=== PATIENT | female | born 1975 | race Hispanic/Latino ===

== ENCOUNTER 2022-02-27 16:16 | Emergency (ER) | payer SELFPAY | END 2022-02-27 18:58 | disposition home or self-care (01) | LOC: ERS 16:16 | DX: N64.59 Other signs and symptoms in breast (principal); G40.909 Epilepsy, unspecified, not intractable, without status epilepticus | CPT/HCPCS: 99282 ==

== ENCOUNTER 2022-04-26 15:03 | Emergency (ER) | payer MEDICAID, SELFPAY | END 2022-04-26 16:23 | disposition home or self-care (01) | LOC: ERS 15:03 | DX: J06.9 Acute upper respiratory infection, unspecified (principal); Z20.822 Contact with and (suspected) exposure to COVID-19 | CPT/HCPCS: 99283; U0003; U0005 ==

== ENCOUNTER 2022-05-08 04:56 | Emergency (ER) | payer SELFPAY ==
[2022-05-08 06:20] LABS: #Eosinphils 0.4 thou/uL (0.0-0.7); #Lymphocytes 3.2 thou/uL (1.20-3.40); #Monocytes 0.6 thou/uL (0.11-0.59); #Neutrophils 3.6 thou/uL (1.40-6.50); %Basophils 0.5 % (0.0-1.0); %Eosinophils 5.4 % (0.0-10.0); %Lymphocytes 41.2 % (21.0-51.0); %Neutrophils 45.9 % (42.0-75.0); Hemoglobin 13.3 g/dL (12.0-16.0); Mean Corpuscular Hemoglobin 33.2 pg (27.0-31.0); Mean Corpuscular Volume 97.5 fL (78.0-98.0); Mean Platelet Volume 6.4 fL (7.4-10.4); Platelet Count 290 thou/uL (130-400); RBC Distribution Width 11.1 % (11.5-14.5); Red Blood Cell (RBC) Count 4.01 mill/uL (4.20-5.40); White Blood Cell (WBC) Count 7.9 thou/uL (4.8-10.8)
[2022-05-08 06:40] LABS: Bilirubin Negative (Negative); Blood, Urine Negative (Negative); Clarity Clear (Clear); Glucose, Urine (Dipstick) Normal (Negative); Ketone, Urine Negative (Negative); Leukocyte Negative Leu/uL (Negative); Nitrite Negative (Negative); Protein, Urine (Dipstick) Negative (Neg-Trace); Specific Gravity, Urine 1.019 (1.002-1.036); Urobilinogen Normal mg/dL (Less than 2); pH, Urine 5.5 (5.0-9.0)
[2022-05-08 06:42] LABS: ALT (SGPT) 13 U/L (8-55); AST (SGOT) 13 U/L (5-34); Alkaline Phosphatase 103 U/L (40-110); Anion Gap 14 mmol/L (10-20); BUN (Urea Nitrogen) 11 mg/dL (7.0-18.7); Bilirubin, Total 0.3 mg/dL (0.2-1.2); Calc. Creatinine Clearance 0 mL/min (70-130); Calcium 8.5 mg/dL (7.8-10.44); Carbon Dioxide 21 mmol/L (22-29); Chloride 107 mmol/L (98-107); Estimated GFR 110; Globulin 3.3 g/dL (2.4-3.5); Glucose 98 mg/dL (70-105); Protein, Total 7.3 g/dL (6.0-8.3); Sodium 138 mmol/L (136-145)
[2022-05-08 06:43] LABS: Pregnancy Test - Urine (BHCG) Negative (Negative); Pregu Control Background? CLEAR/WHITE (CLR/WHITE); Pregu Control Bar Appear? YES (CONTROL BAR); Specific Gravity 1.013 (1.002-1.036)
[2022-05-08] MEDS ORDERED: Morphine 4 MG/ML VIAL ONE (06:47)
[2022-05-08] MEDS ORDERED: Famotidine/PF 20 mg/2ml Vial ONE (06:47)
[2022-05-08] MEDS ORDERED: Ondansetron PF 4 MG/2 ML Vial ONE (06:47)
[2022-05-08] MEDS ORDERED: Iopamidol-370 76% 500 ML 1 ML ONE (13:29)
== END 2022-05-08 08:08 | disposition home or self-care (01) ==
LOC: ERS 04:56
DX: R10.13 Epigastric pain (principal)
CPT/HCPCS: 36415; 74177; 80053; 81003; 81025; 83690; 84484; 85025; 93005; 96374; 96375; J2270; J2405; Q9967; S0028

== ENCOUNTER 2022-07-25 12:58 | Outpatient (CLI) | payer MEDICAID | END 2022-07-25 12:59 | disposition home or self-care (01) | LOC: BICMAMMO 12:58 | PROVIDERS: ATTEND Family Medicine | DX: Z12.31 Encounter for screening mammogram for malignant neoplasm of breast (principal) | CPT/HCPCS: 77067 ==

== ENCOUNTER 2022-09-12 13:59 | Emergency (ER) | payer MEDICAID, SELFPAY ==
[2022-09-12] MEDS ORDERED: Boostrix 0.5 ML (Tdap) VIAL (>/=7 yrs of age) ONE (14:51)
[2022-09-12] MEDS ORDERED: Lidocaine 1% PF 5 ML VIAL ONE (14:51)
[2022-09-12] MEDS ORDERED: Bacitracin 1 PK ONE (15:38)
== END 2022-09-12 15:41 | disposition home or self-care (01) ==
LOC: ERS 13:59
DX: S61.211A Laceration without foreign body of left index finger without damage to nail, initial encounter (principal); Z23 Encounter for immunization; W27.2XXA Contact with scissors, initial encounter
CPT/HCPCS: 12002; 90471; 90715

== ENCOUNTER 2023-01-18 01:50 | Emergency (ER) | payer MEDICAID ==
[2023-01-18] MEDS ORDERED: diphenhydrAMINE 50 MG/ML VIAL ONE (02:02)
[2023-01-18] MEDS ORDERED: Famotidine/PF 20 mg/2ml Vial ONE (02:02)
[2023-01-18] MEDS ORDERED: methylPREDNISolone Sod Succ/PF 125 MG/2 ML VIAL ONE (02:02)
== END 2023-01-18 02:45 | disposition home or self-care (01) ==
LOC: ERS 01:50
DX: L50.0 Allergic urticaria (principal)
CPT/HCPCS: 96374; 96375; J1200; J2930; S0028

== ENCOUNTER 2023-05-15 12:05 | Emergency (ER) | payer OTHER ==
[2023-05-15] MEDS ORDERED: Boostrix 0.5 ML (Tdap) VIAL (>/=7 yrs of age) ONE (14:03)
== END 2023-05-15 14:24 | disposition home or self-care (01) ==
LOC: ERS 12:05
DX: S91.102A Unspecified open wound of left great toe without damage to nail, initial encounter (principal); E78.00 Pure hypercholesterolemia, unspecified; Z79.899 Other long term (current) drug therapy; W25.XXXA Contact with sharp glass, initial encounter
CPT/HCPCS: 90471; 90715

== ENCOUNTER 2023-08-02 14:36 | Outpatient (CLI) | payer OTHER | END 2023-08-02 14:37 | disposition home or self-care (01) | LOC: BICMAMMO 14:36 | PROVIDERS: ATTEND Family Medicine | DX: Z12.31 Encounter for screening mammogram for malignant neoplasm of breast (principal) | CPT/HCPCS: 77067 ==

== ENCOUNTER 2023-08-15 11:41 | Emergency (ER) | payer OTHER | END 2023-08-15 12:50 | disposition home or self-care (01) | LOC: ERS 11:41 | DX: H00.013 Hordeolum externum right eye, unspecified eyelid (principal); E78.00 Pure hypercholesterolemia, unspecified | CPT/HCPCS: 99283 ==

== ENCOUNTER 2023-08-17 13:33 | Emergency (ER) | payer OTHER ==
[2023-08-17 15:02] LABS: #Eosinphils 0.2 thou/uL (0.0-0.7); #Monocytes 0.5 thou/uL (0.11-0.59); #Neutrophils 2.8 thou/uL (1.40-6.50); %Basophils 0.3 % (0.0-1.0); %Eosinophils 2.4 % (0.0-10.0); %Lymphocytes 45.6 % (21.0-51.0); %Monocytes 7.3 % (0.0-10.0); %Neutrophils 44.2 % (42.0-75.0); Hematocrit 40.8 % (36.0-47.0); Hemoglobin 14.2 g/dL (12.0-16.0); Mean Corpuscular HGB CONC 34.8 g/dL (32.0-36.0); Mean Corpuscular Hemoglobin 32.1 pg (27.0-31.0); Mean Corpuscular Volume 92.3 fl (78.0-98.0); Mean Platelet Volume 8.9 fL (7.4-10.4); Platelet Count 268 10x3/uL (130-400); RBC Distribution Width 11.9 % (11.5-14.5); Red Blood Cell (RBC) Count 4.42 mill/uL (4.20-5.40); White Blood Cell (WBC) Count 6.3 10x3/uL (4.8-10.8)
[2023-08-17 15:24] LABS: ALT (SGPT) 13 U/L (8-55); AST (SGOT) 16 U/L (5-34); Albumin 4.9 g/dL (3.5-5.0); Alkaline Phosphatase 125 U/L (40-110); Anion Gap 13 mmol/L (10-20); BUN (Urea Nitrogen) 12 mg/dL (7.0-18.7); Bilirubin, Total Less than 0.2 mg/dL (0.2-1.2); Calc. Creatinine Clearance 0 mL/min (70-130); Calcium 9.9 mg/dL (7.8-10.44); Carbamazepine-Tegretol 8.5 ug/mL (4.0-12.0); Carbon Dioxide 26 mmol/L (22-29); Chloride 103 mmol/L (98-107); Estimated GFR 110; Globulin 3.2 g/dL (2.4-3.5); Glucose 80 mg/dL (70-105); Potassium 4.3 mmol/L (3.5-5.1); Protein, Total 8.1 g/dL (6.0-8.3); Sodium 138 mmol/L (136-145)
[2023-08-17] MEDS ORDERED: levETIRAcetam 500 MG/5 ML VIAL ONE (16:00)
[2023-08-17 17:00] LABS: Bacteria/HPF 3+ HPF (None Seen); Bilirubin Negative (Negative); Blood, Urine Negative (Negative); CAUTI Indications for Culture Alt mental st,lethar; Clarity Clear (Clear); Glucose, Urine (Dipstick) Normal (Negative); Ketone, Urine Negative (Negative); Leukocyte Negative Leu/uL (Negative); Nitrite Negative (Negative); Protein, Urine (Dipstick) Negative (Neg-Trace); RBC/HPF 0-3 HPF (0-3); Specific Gravity, Urine 1.011 (1.002-1.036); Squamous Epithelial 0-3 HPF (0-3); Urobilinogen Normal mg/dL (Less than 2); WBC/HPF 0-3 HPF (0-3); pH, Urine 5.5 (5.0-9.0)
[2023-08-17 17:04] LABS: Urine Culture Reflex No No
== END 2023-08-17 17:27 | disposition home or self-care (01) ==
LOC: ERS 13:33
DX: R56.9 Unspecified convulsions (principal); E78.00 Pure hypercholesterolemia, unspecified
CPT/HCPCS: 80053; 80156; 81001; 84146; 85025; 93005; 94760; 96365; J1953

== ENCOUNTER 2023-08-30 10:16 | Emergency (ER) | payer OTHER ==
[2023-08-30] MEDS ORDERED: levETIRAcetam 500 MG/5 ML VIAL ONE (11:28)
== END 2023-08-30 13:35 | disposition home or self-care (01) ==
LOC: ERS 10:16
DX: G40.909 Epilepsy, unspecified, not intractable, without status epilepticus (principal)
CPT/HCPCS: 70450; 96374; J1953

== ENCOUNTER 2023-09-25 19:16 | Emergency (ER) | payer OTHER ==
[2023-09-25 20:22] LABS: #Eosinphils 0.3 thou/uL (0.0-0.7); #Monocytes 0.5 thou/uL (0.11-0.59); #Neutrophils 3.8 thou/uL (1.40-6.50); %Basophils 0.1 % (0.0-1.0); %Eosinophils 3.8 % (0.0-10.0); %Lymphocytes 32.7 % (21.0-51.0); %Monocytes 7.2 % (0.0-10.0); %Neutrophils 55.9 % (42.0-75.0); Hematocrit 37.8 % (36.0-47.0); Mean Corpuscular HGB CONC 34.4 g/dL (32.0-36.0); Mean Corpuscular Hemoglobin 32.6 pg (27.0-31.0); Mean Corpuscular Volume 94.7 fl (78.0-98.0); Mean Platelet Volume 8.6 fL (7.4-10.4); Platelet Count 276 10x3/uL (130-400); RBC Distribution Width 11.8 % (11.5-14.5); Red Blood Cell (RBC) Count 3.99 mill/uL (4.20-5.40); White Blood Cell (WBC) Count 6.8 10x3/uL (4.8-10.8)
[2023-09-25 20:34] LABS: BHCG - Serum Negative (NEGATIVE); Pregs Control Background? CLEAR/WHITE (CLR/WHITE); Pregs Control Bar Appear? YES (CONTROL BAR)
[2023-09-25 20:51] LABS: Troponin I Less than 0.010 ng/mL (< 0.028)
[2023-09-25 20:55] LABS: ALT (SGPT) 10 U/L (8-55); AST (SGOT) 14 U/L (5-34); Albumin 3.9 g/dL (3.5-5.0); Alkaline Phosphatase 105 U/L (40-110); Anion Gap 11 mmol/L (10-20); BUN (Urea Nitrogen) 15 mg/dL (7.0-18.7); Bilirubin, Total 0.2 mg/dL (0.2-1.2); Calc. Creatinine Clearance 0 mL/min (70-130); Calcium 8.6 mg/dL (7.8-10.44); Carbon Dioxide 24 mmol/L (22-29); Chloride 108 mmol/L (98-107); Estimated GFR 103; Globulin 3.2 g/dL (2.4-3.5); Glucose 109 mg/dL (70-105); Lipase 20 U/L (8-78); Protein, Total 7.1 g/dL (6.0-8.3); Sodium 139 mmol/L (136-145)
[2023-09-25] MEDS ORDERED: hydrOXYzine 25 MG TAB ONE (20:57)
== END 2023-09-25 22:30 | disposition home or self-care (01) ==
LOC: ERS 19:16
DX: R07.89 Other chest pain (principal); F43.0 Acute stress reaction; G40.909 Epilepsy, unspecified, not intractable, without status epilepticus; Z79.899 Other long term (current) drug therapy
CPT/HCPCS: 36415; 71045; 80053; 83690; 83735; 84484; 84703; 85025; 93005

== ENCOUNTER 2024-11-21 13:51 | Outpatient (CLI) | payer OTHER | END 2024-11-21 13:52 | disposition home or self-care (01) | LOC: BICMAMMO 13:51 | PROVIDERS: ATTEND Family Medicine | DX: Z12.31 Encounter for screening mammogram for malignant neoplasm of breast (principal) | CPT/HCPCS: 77067 ==

== ENCOUNTER 2025-06-09 08:32 | Outpatient (CLI) | payer OTHER ==
[2025-06-09] MEDS ORDERED: Iopamidol 370 76% 100 ML VIAL ONE (09:36)
== END 2025-06-09 08:33 | disposition home or self-care (01) ==
LOC: CT 08:32
PROVIDERS: ATTEND Surgery
DX: K43.2 Incisional hernia without obstruction or gangrene (principal)
CPT/HCPCS: 74177; Q9967